=== PATIENT | female | born 1995 | race Caucasian/White ===

== ENCOUNTER → 2017-04-21 09:15 | Outpatient (CLI) | payer MEDICAID ==
[~2017-04-21 09:15] MED LIST: FERROUS SULFAT325 MG PO; HYDROCODON-ACE1 EAC7 PO; IBUPROFEN600 MG PO; PRENATAL COMPLE1 TAB PO
[2017-04-28 05:38] VITALS: BMI 28.7
== END | disposition home or self-care (01) ==
LOC: D.LDO 09:15
DX: Z34.93 Encounter for supervision of normal pregnancy, unspecified, third trimester (principal); Z3A.38 38 weeks gestation of pregnancy

== ENCOUNTER → 2017-04-24 14:38 | Outpatient (CLI) | payer MEDICAID ==
[2017-04-28 05:38] VITALS: BMI 28.7
== END | disposition home or self-care (01) ==
LOC: D.LDO 14:38
DX: O48.0 Post-term pregnancy (principal); Z3A.40 40 weeks gestation of pregnancy

== ENCOUNTER 2017-04-28 05:25 | Inpatient (IN) | payer MEDICAID ==
[~2017-04-28] VITALS: Ht 160 cm; Wt 73.5 kg
[2017-04-28 05:38] VITALS: BP 108/60; Ht 160 cm; Wt 73.5 kg
[2017-04-28 06:34] LABS: HEMATOCRIT 32.8 % (36.0-48.0); HEMOGLOBIN 10.4 g/dL (12-16); MCH 28.1 pg (26.0-34.0); MCHC 31.7 g/dL (31.0-37.0); MCV 88.6 fL (80.0-100.0); MEAN PLATELET VOLUME 10.2 fL (7.4-10.4); RBC 3.7 10x6/uL (4.00-5.40); RDW 15.4 % (11.5-14.5); WBC 12.4 10x3/uL (4.8-10.8)
[2017-04-28 06:53] LABS: APPEARANCE CLOUDY (CLEAR); BILIRUBIN NEGATIVE (NEGATIVE); COLOR YELLOW (YELLOW); GLUCOSE 50 mg/dL (NEGATIVE); KETONE NEGATIVE (NEGATIVE); NITRITE NEGATIVE (NEGATIVE); PROTEIN NEGATIVE (NEGATIVE); UROBILINOGEN NORMAL (NORMAL)
[2017-04-28 07:08] LABS: UDS - AMPHET NEGATIVE QUAL (NEGATIVE); UDS - BARB NEGATIVE QUAL (NEGATIVE); UDS - BENZO NEGATIVE QUAL (NEGATIVE); UDS - COCAINE NEGATIVE QUAL (NEGATIVE); UDS - OPIATE NEGATIVE QUAL (NEGATIVE); UDS - PCP NEGATIVE QUAL (NEGATIVE); UDS - THC NEGATIVE QUAL (NEGATIVE)
[2017-04-28 21:38] VITALS: BP 128/78
[2017-04-29 07:11] LABS: HEMATOCRIT 27.9 % (36.0-48.0); HEMOGLOBIN 8.9 g/dL (12-16); MCH 28.1 pg (26.0-34.0); MCHC 31.9 g/dL (31.0-37.0); RBC 3.17 10x6/uL (4.00-5.40); RDW 15.4 % (11.5-14.5); WBC 13.1 10x3/uL (4.8-10.8)
[2017-04-29 07:45] VITALS: BP 107/72
[2017-04-29 09:19] LABS: RAPID PLASMA REAGIN Non Reactive (Non Reactive)
[2017-04-29 20:00] VITALS: BP 106/71
[2017-04-30] MEDS ORDERED: FERROUS SULFAT325 MG PO (03:21)
[2017-04-30] MEDS ORDERED: PRENATAL COMPLE1 TAB PO (03:21)
[2017-04-30 07:59] VITALS: BP 99/58
[2017-04-30] MEDS ORDERED: HYDROCODON-ACE1 EAC7 PO (08:14)
[2017-04-30] MEDS ORDERED: IBUPROFEN600 MG PO (08:14)
== END 2017-04-30 09:38 | disposition home or self-care (01) | DRG 775 ==
LOC: D.LD 05:25
PROVIDERS: Obstetrics & Gynecology
PROC: 10E0XZZ Delivery of Products of Conception, External Approach (ICD-10-PCS; principal; 2017-04-28)
PROC: 0DQR0ZZ Repair Anal Sphincter, Open Approach (ICD-10-PCS; 2017-04-28)
DX: O70.20 Third degree perineal laceration during delivery, unspecified (principal); Z3A.40 40 weeks gestation of pregnancy; Z37.0 Single live birth

== ENCOUNTER → 2020-09-06 11:52 | Outpatient (CLI) | payer MEDICAID ==
[2017-04-28 05:38] VITALS: BMI 28.7
[2020-09-06 12:42] LABS: BASOPHILS 0.5 % (0-2); EOSINOPHILS 0.3 % (0-7); HEMATOCRIT 35.6 % (36.0-48.0); HEMOGLOBIN 11.4 g/dL (12-16); MCH 29.4 pg (26.0-34.0); MCHC 31.9 g/dL (31.0-37.0); MCV 92.1 fL (80.0-100.0); MEAN PLATELET VOLUME 7.1 fL (7.4-10.4); MONOCYTES 4.9 % (2-11); NEUTROPHILS 82.3 % (40-80); RBC 3.87 10x6/uL (4.00-5.40); RDW 14.5 % (11.5-14.5); WBC 13.1 10x3/uL (4.8-10.8)
[2020-09-06 12:44] LABS: PLATELET COUNT 268 10x3/uL (130-400)
[2020-09-06 13:29] LABS: BACTERIA MODERATE HPF (NONE SEEN); BILIRUBIN NEGATIVE (NEGATIVE); KETONE NEGATIVE (NEGATIVE); NITRITE NEGATIVE (NEGATIVE); SQUAMOUS EPITHELIAL OCC HPF (0-4); UROBILINOGEN NORMAL mg/dL (< 2); WHITE CELLS - URINE 0-5 HPF (0-4)
== END | disposition home or self-care (01) ==
LOC: D.LDO 11:52
PROVIDERS: ATTEND Obstetrics & Gynecology
DX: O35.9XX0 Maternal care for (suspected) fetal abnormality and damage, unspecified, not applicable or unspecified (principal)